=== PATIENT | male | born 1990 | race Caucasian/White ===

== ENCOUNTER 2019-10-16 19:07 | Emergency (ER) | payer SELFPAY ==
[2019-10-16 19:12] VITALS: BP 116/74; PULSE 113; RESP 16; TEMP 37.7; O2SAT 97; BMI 22.8
--- NOTE | 2019-10-16 19:20 | ED_ITS ---
Entered by Erin Meredith, acting as scribe for Scot Banks DO HPI - Fever General: Chief Complaint: Fever Stated Complaint: fever Time Seen by Provider: 10/16/19 19:19 History of Present Illness: HPI Narrative: 29yo male presents with fever. He states symptoms started 3 days ago and have been constant. Patient believes he has the flu. He is unable to eat and has muscle aches. Associated symptoms: Deny abdominal pain, back/flank pain, chills, chest pain, confusion, diarrhea, dysuria, extremity pain, headache(s), nasal congestion, nausea or vomiting Review of Systems Const: Reports: fever; Denies: chills Eyes: Denies: change in vision or blurry vision ENMT: Denies: nasal congestion Card: Denies: chest pain Resp: Denies: shortness of breath, productive cough or non-productive cough GI: Denies: abdominal pain, nausea, vomiting or diarrhea : Denies: flank pain or painful urination Musc: Denies: neck pain, back pain, extremity pain, extremity swelling, joint pain or joint swelling Skin/Breast: Denies: rash or itching Neuro: Denies: headache, numbness in extremities, weakness in extremities, changes in sensation, lack of coordination, difficulty walking, frequent falls, dizziness, vertigo or confusion Psych: Denies: anxiety, depression, loss of interest, visual hallucinations, auditory hallucinations, suicidal ideation or homicidal ideation Endo: Denies: excessive urination, excessive thirst, tired all the time or cold intolerance Ramón/Lymph: Denies: easy bruising, easy bleeding, petechiae, enlarged lymph nodes or tender lymph nodes PFSH ED PFSH: Medical History (Updated 10/16/19 @ 20:17 by Scot Banks DO) Attention-deficit hyperactivity disorder, combined type Bipolar disorder, current episode hypomanic Cannabis dependence, uncomplicated Generalized anxiety disorder Nicotine dependence, cigarettes, uncomplicated Social History (Updated 09/15/19 @ 14:26 by Bhumika Carbajal LPN) Smoking and tobacco status: current every day smoker cigarettes Smoking risk assessment/counseling performed?: Yes Tobacco counseling given: counseling >3 minutes Physical Exam 2 Const: COMMON NORMALS: no apparent distress GENERAL APPEARANCE: cooperative and comfortable ORIENTATION/CONSCIOUSNESS: Yes awake, Yes oriented to person, Yes oriented to place and Yes oriented to time HENMT: COMMON NORMALS: normocephalic, head/scalp atraumatic, hearing grossly normal bilaterally, external ears normal, EAC's normal, TM's normal bilaterally, nasal mucous membranes and turbinates normal, moist oral mucous membranes and oropharynx normal HEAD & SCALP: normocephalic and atraumatic NOSE: nasal mucous membranes and turbinates normal EXTERNAL EAR: Yes external ears normal EXTERNAL AUDITORY CANAL: EAC's normal TYMPANIC MEMBRANE: TM's normal bilaterally Eye: COMMON NORMALS: PERRL, EOMs intact bilaterally, conjunctivae normal and no scleral icterus CONJUNCTIVA: Yes conjunctivae normal PUPIL: Yes PERRL Neck/C-Spine: COMMON NORMALS: full ROM, no lymphadenopathy, supple and no JVD Lymph: LYMPHATIC: no lymphadenopathy noted and no lymphedema noted Resp: COMMON NORMALS: normal respiratory effort, no retractions, no use of accessory muscles and clear to auscultation bilaterally AUSCULTATION: clear to auscultation bilaterally Cardio: COMMON NORMALS: no JVD, regular rate, regular rhythm and no murmurs RATE: regular rate RHYTHM: regular rhythm GI: COMMON NORMALS: soft to palpation and no hepatosplenomegaly AUSCULTATION: Yes normoactive bowel sounds PALPATION: Yes soft, No tender, No guarding and Yes no hepatosplenomegaly Extremity: COMMON NORMALS: normal to inspection, normal capillary refill, no clubbing, cyanosis or edema, no calf tenderness and no pedal edema Neuro: SENSORIUM/ORIENTATION: Yes oriented to person, Yes oriented to place and Yes oriented to time Skin: COMMON NORMALS: no rashes or lesions noted GENERAL SKIN EXAM: no rashes or lesions noted Course ED course: Supportive cares Vital Signs: Vital signs: Vital Signs Temperature 100 F H 10/16/19 19:12 Pulse Rate 100 10/16/19 20:16 Respiratory Rate 18 10/16/19 20:16 Blood Pressure 116/74 10/16/19 20:16 Pulse Oximetry 95 10/16/19 20:16 Discharge Plan Discharge Patient Disposition: Home, Self-Care Clinical Impression: Influenza Condition: Stable Prescriptions: No Action quetiapine [Seroquel] 100 mg tablet 100 mg PO QDAY Qty: 30 RF: 2 fluoxetine [Prozac] 20 mg capsule 20 mg PO QDAY Qty: 30 RF: 2 Referrals: Martínez Coelho MD [Primary Care Provider] - Activity Restrictions/Additional Instructions: Abortive cares. Push fluids Tylenol ibuprofen as needed return if further problems. Discharge Date/Time: 10/16/19 20:25 Coding Level of Care Code ED Digital Imager for Chg Fwd Exam Comprehensive The documentation recorded by the Viri dominguez Bailey Leadawn, accurately reflects the service I personally performed and the decisions made by , Antonette waller,Scot Yoder, Oct 16, 2019 19:07
[2019-10-16 20:16] VITALS: BP 116/74; PULSE 100; RESP 18; O2SAT 95
== END 2019-10-16 20:25 | disposition home or self-care (01) ==
PROVIDERS: Emergency Provider Family Medicine; PCP Family Medicine
DX: J11.1 Influenza due to unidentified influenza virus with other respiratory manifestations (principal); F17.210 Nicotine dependence, cigarettes, uncomplicated
CPT/HCPCS: 99281

== ENCOUNTER → 2020-06-01 13:26 | Outpatient (BNVA) | payer OTHER, SELFPAY | PROVIDERS: PCP Family Medicine; Visit Provider Nurse Practitioner | DX: Z79.899 Other long term (current) drug therapy (principal) | CPT/HCPCS: 80061; 83036 ==

== ENCOUNTER 2021-08-04 21:24 | Emergency (ER) | payer SELFPAY ==
[2021-08-04 21:33] VITALS: PULSE 100; RESP 20; TEMP 36.4; O2SAT 97; BMI 25.0
--- NOTE | 2021-08-04 21:46 | ED_ITS ---
HPI - Dental/Oral General: Chief complaint: Dental/Oral Stated complaint: Severe infection in back tooth Time Seen by Provider: 08/04/21 21:37 History of Present Illness: HPI Narrative: Patient is a 31-year-old male comes to the ED with dental pain. Symptoms started couple days ago. His pain is located in his back lower left molar. Denies any injury or trauma to the mouth to cause pain. He is having some swelling in the gum around tooth #17. He rates his pain currently a 10 out of 10. He is currently trying to get set up with the dentist. Associated symptoms: Denies fever(s) or odynophagia Review of Systems Const: Denies: fever(s), chills or fatigue Eyes: Denies: change in vision or eye discomfort ENMT: Reports: dental pain; Denies: throat pain, odynophagia, nasal discharge or nasal congestion Card: Denies: chest pain, palpitations, edema, swelling of feet/ankles, dyspnea on exertion or orthopnea Resp: Denies: dyspnea, productive cough or non-productive cough GI: Denies: abdominal pain, nausea, vomiting, diarrhea, constipation or hematochezia : Denies: flank pain, difficulty urinating, dysuria or hematuria Musc: Denies: neck pain, back pain or extremity swelling Skin/Breast: Denies: rash or new lesions Neuro: Denies: headache(s), numbness in extremities or weakness in extremities [facility] ED PFSH: Medical History Attention-deficit hyperactivity disorder, combined type Bipolar disorder, current episode hypomanic Cannabis dependence, uncomplicated Generalized anxiety disorder Nicotine dependence, cigarettes, uncomplicated On high dose antipsychotic drug therapy Social History Smoking and tobacco status: current every day smoker cigarettes Smoking risk assessment/counseling performed?: Yes Tobacco counseling given: counseling >3 minutes Physical Exam Const: COMMON NORMALS: no acute distress, patient oriented x3, healthy appearing and alert GENERAL APPEARANCE: cooperative and comfortable HENMT: COMMON NORMALS: normocephalic HEAD & SCALP: normocephalic MOUTH: Normal oral and palatal mucosa present TEETH & GINGIVA: Yes abnormal tooth and associated gingiva lower left third molar tender, with associated gingival edema and other (dental caries) and Yes caries THROAT: posterior oropharynx normal and uvula midline Eye: COMMON NORMALS: Equal, round and reactive pupils present PUPIL: Yes Equal, round and reactive pupils present Neck/C-Spine: COMMON NORMALS: supple GENERAL: Yes normal visual inspection Resp: COMMON NORMALS: normal respiratory effort, No retractions, No use of accessory muscles and clear to auscultation bilaterally AUSCULTATION: clear to auscultation bilaterally Cardio: COMMON NORMALS: regular rate, regular rhythm, S1 normal heart sound present, S2 normal heart sound present, No gallops present (Cardio), No clicks present (Cardio), No murmurs present (Cardio) and Peripheral pulses 2+ throughout RATE: regular rate RHYTHM: regular rhythm HEART SOUNDS: S1 normal heart sound present and S2 normal heart sound present PERIPHERAL PULSES: Peripheral pulses 2+ throughout GI: COMMON NORMALS: Normal to inspection, nondistended, normoactive bowel sounds present, Soft to palpation, non-tender and no masses PALPATION: Yes Soft to palpation : COMMON NORMALS: Yes no CVA tenderness BLADDER/KIDNEY EXAM: Yes no CVA tenderness Back/Pelvis: COMMON NORMALS: no CVA tenderness Extremity: COMMON NORMALS: normal to inspection Neuro: COMMON NORMALS: patient oriented x3 SENSORIUM/ORIENTATION: Yes alert Skin: GENERAL SKIN EXAM: dry skin Course Vital Signs: Vital signs: Vital Signs Temperature 97.5 F L 08/04/21 21:33 Pulse Rate 100 08/04/21 21:33 Respiratory Rate 16 08/04/21 21:59 Pulse Oximetry 97 08/04/21 21:33 MDM - Dental/Oral MDM Narrative: Medical decision making narrative: Patient is a 31-year-old male comes to the ED with dental pain. He was discharged home with a prescription for clindamycin and Celebrex for pain. He was told to contact [facility] and get appointment set up with them for further evaluation. Return to ED precautions given. Patient understood agree with plan. Discharge Plan Discharge Patient Disposition: Home Clinical Impression: Pain due to dental caries Condition: Stable Prescriptions: New clindamycin HCl 150 mg capsule 300 mg PO QID 7 Days Qty: 56 RF: 0 Celebrex 100 mg capsule 100 mg PO BID PRN (Reason: pain) Qty: 20 RF: 0 No Action quetiapine [Seroquel] 100 mg tablet 100 mg PO .HS Qty: 30 RF: 1 venlafaxine 75 mg capsule,extended release 24hr 75 mg PO DAILY Qty: 30 RF: 1 Discharge Orders: Discharge ED (Routine); Ordered 08/04/21 Ordered By: Deon Echevarria Discharge Diet: Regular Discharge Activity: Resume usual activity Patient Instructions: Dental Caries (Cavities) Activity Restrictions/Additional Instructions: Follow-up with dentist as soon as possible to get your dental issue evaluated. Take medications as prescribed. Return to the ER or your medical provider if condition worsens. Please read and understand discharge instructions. Thank you for choosing [facility] for your healthcare needs today. Please realize this is an emergency room and that we are providing you with a medical screening exam and this may not be complete and all inclusive of all the testing and or work up that you may need to determine your ailment or severity of your illness. It is very important that you follow up as instructed or that you return to the Emergency Department should you have concerns or if your condition changes or worsens in any way. Coding Level of Care Code ED Chemical Operations Specialist for Lg Teague Exam Comprehensive
[2021-08-04] MEDS: clindamycin 150 mg Capsule 300 MG PO (21:54)
[2021-08-04] MEDS: HYDROcodone-acetaminophen 7.5-325 mg Tablet 1 TAB PO (21:54)
[2021-08-04 21:59] VITALS: RESP 16
== END 2021-08-04 22:00 | disposition home or self-care (01) ==
PROVIDERS: Emergency Provider Physician Assistant
DX: K02.9 Dental caries, unspecified (principal); F17.210 Nicotine dependence, cigarettes, uncomplicated
CPT/HCPCS: 99283

== ENCOUNTER 2023-04-11 00:36 | Emergency (ER) | payer SELFPAY ==
[2023-04-11 00:55] VITALS: BP 135/75; PULSE 120; RESP 18; TEMP 37.3; O2SAT 95; BMI 22.0
--- NOTE | 2023-04-11 00:57 | W.ED.URI ---
HPI - URI/Sore Throat General: Chief Complaint: Upper Respiratory Infection Stated Complaint: Sore Throat Time Seen by Provider: 04/11/23 00:41 History of Present Illness: 33-year-old male patient comes in today with complaints of sore throat. Patient reports noticing exudate to his tonsils 2 to 3 days ago. Patient reports that he was trying to get the white stuff off his tonsils when he started some bleeding. Patient has no bleeding at this time. Patient appears nontoxic. Associated symptoms: Reports chills Review of Systems General: Reports: 10 or more systems reviewed and unremarkable except in HPI and below Const: Reports: chills ENMT: Reports: enlarged tonsils PFSH ED PFSH: Medical History Attention-deficit hyperactivity disorder, combined type Bipolar disorder, current episode hypomanic Cannabis dependence, uncomplicated Generalized anxiety disorder Nicotine dependence, cigarettes, uncomplicated On high dose antipsychotic drug therapy Social History Smoking and tobacco status: current every day smoker cigarettes Smoking risk assessment/counseling performed?: Yes Tobacco counseling given: counseling >3 minutes Physical Exam Const: COMMON NORMALS: alert HENMT: COMMON NORMALS: normocephalic HEAD & SCALP: normocephalic THROAT: abnormal tonsil right erythema, exudates and hypertrophy and left erythema Neck/C-Spine: COMMON NORMALS: full ROM Resp: COMMON NORMALS: normal respiratory effort Cardio: COMMON NORMALS: regular rhythm RHYTHM: regular rhythm GI: COMMON NORMALS: non-tender Back/Pelvis: COMMON NORMALS: thoracic and lumbar spine normal to inspection Extremity: COMMON NORMALS: full ROM Neuro: SENSORIUM/ORIENTATION: Yes alert Skin: COMMON NORMALS: turgor normal GENERAL SKIN EXAM: turgor normal Course Vital Signs: Vital signs: Vital Signs Temperature 99.1 F 04/11/23 00:55 Pulse Rate 120 H 04/11/23 00:55 Respiratory Rate 18 04/11/23 00:55 Blood Pressure 135/75 04/11/23 00:55 Pulse Oximetry 95 04/11/23 00:55 Oxygen Delivery Me thod Room Air 04/11/23 00:55 MDM - URI/Sore Throat Medical Decision Making 33-year-old male patient comes in today with complaints of sore throat. On exam patient has a enlarged right tonsil with exudate. Patient's left tonsil is irregular and erythematous. Patient manages secretions well. Posterior pharynx is erythematous. Respirations are even lungs are clear to auscultation. Vital signs note some mild tachycardia and a temperature of 99.1. Differential diagnosis includes exudative tonsillitis, tonsillar abscess, retropharyngeal abscess, upper respiratory infection. No signs of severe illness is noted at this time. Patient does appear to have exudative tonsillitis. We will go ahead and treat with Augmentin and 1 dose of dexamethasone 10 mg. Patient reported understanding of care plan and need for follow-up or return to the ER. Discharge Plan Discharge Patient Disposition: Home Clinical Impression: Tonsillitis with exudate Condition: Stable Prescriptions: New amoxicillin-pot clavulanate 875-125 mg tablet 1 tab PO BID Qty: 20 0RF No Action quetiapine [Seroquel] 100 mg tablet 100 mg PO .HS Qty: 30 1RF venlafaxine 75 mg capsule,extended release 24hr 75 mg PO DAILY Qty: 30 1RF Celebrex 100 mg capsule 100 mg PO BID PRN (Reason: pain) Qty: 20 0RF Discharge Orders: Discharge ED (Routine); Ordered 04/11/23 Ordered By: Dax Tatum Discharge Diet: Usual diet Discharge Activity: Increase activity as tolerated Patient Instructions: Tonsillitis (ED) Activity Restrictions/Additional Instructions: Drink plenty of water with antibiotics. Use warm salt water gargles to help with exudate to the tonsils. Do not swallow the salt water just spit it out after gargling. Take oral antibiotics for the total of 10 days. You were given a dose of dexamethasone 10 mg in the emergency room to help with the tonsil swelling and soreness. Follow-up with primary care for further instructions. Return to ED for new concerns or worsening symptoms such as severe shortness of breath, or inability to swallow. Coding Level of Care Code ED Small Arms Artillery Repairer for Lg Teague
[2023-04-11] MEDS: dexamethasone 4 mg Tablet 10 MG PO (01:13)
[2023-04-11] MEDS: amoxicillin-clav 875-125 mg Tablet 1 TAB PO (01:13)
== END 2023-04-11 01:18 | disposition home or self-care (01) ==
PROVIDERS: Emergency Provider Nurse Practitioner Family
DX: J03.90 Acute tonsillitis, unspecified (principal); F17.210 Nicotine dependence, cigarettes, uncomplicated
CPT/HCPCS: 99283; J8540

== ENCOUNTER 2024-04-04 09:55 | Emergency (ER) | payer SELFPAY ==
[2024-04-04 10:09] VITALS: BP 136/79; PULSE 91; RESP 17; TEMP 36.7; O2SAT 98; BMI 24.3
--- NOTE | 2024-04-04 10:51 | CTR_ITS ---
PROCEDURE INFORMATION: Exam: CT Abdomen And Pelvis With Contrast Exam date and time: 04/04/2024 12:12 PM Age: 34 years old Clinical indication: Other: Rectal bleeding; Additional info: Abd pain, rectal bleeding TECHNIQUE: Imaging protocol: Computed tomography of the abdomen and pelvis with contrast. Radiation optimization: All CT scans at this facility use at least one of these dose optimization techniques: automated exposure control; mA and/or kV adjustment per patient size (includes targeted exams where dose is matched to clinical indication); or iterative reconstruction. Contrast material: OMNI 350; Contrast volume: 100 ml; Contrast route: INTRAVENOUS (IV); COMPARISON: No relevant prior studies available. RADIATION DOSE METRICS: Total DLP (mGy-cm): 481.92 FINDINGS: Diaphragm: Small hiatal hernia. Liver: Normal. No mass. Gallbladder and biliary ducts: Normal. No calcified stones. No ductal dilation. Pancreas: Normal. No ductal dilation. Spleen: Normal. No splenomegaly. Adrenal glands: Normal. No mass. Kidneys and ureters: Normal. No hydronephrosis. Stomach and bowel: Unremarkable. No obstruction. No mucosal thickening. Appendix: No evidence of appendicitis. Intraperitoneal space: Unremarkable. No free air. No significant fluid collection. Vasculature: Unremarkable. No abdominal aortic aneurysm. Lymph nodes: Unremarkable. No enlarged lymph nodes. Urinary bladder: Unremarkable as visualized. Reproductive: Unremarkable as visualized. Bones/joints: Physiologic anterior loss of height of the T12 vertebral body. Soft tissues: Small fat containing umbilical hernia. CT/CT abdomen pelvis w con* [id number] IMPRESSION: No acute intra-abdominal process.
--- NOTE | 2024-04-04 11:07 | ED_ITS ---
HPI - Abdominal Pain 2 General: Chief Complaint: Abdominal Pain Stated Complaint: ABD Pain and blood in stool Time Seen by Provider: 04/04/24 10:50 History of Present Illness: 34-year-old male presents to the emergen cy room complaining of intermittent abdominal pain. Patient had an episode of bright red blood in the stool at around 9:00. No fever sweats or chills. No previous rectal bleeding no history of any inflammatory bowel disease such as Crohn's or ulcerative colitis. Associated Symptoms: Denies chills, dysuria and fever(s) Related Data Previous Rx's Medication Instructions Recorded amoxicillin 875 mg-potassium 1 tab PO BID 10 days #20 tabs 10/26/23 clavulanate 125 mg tablet Allergies Allergy/AdvReac Type Severity Reaction Status Date / Time cefaclor [From [facility]] Allergy Unknown Verified 10/26/23 11:40 Review of Systems 2 Const: Denies: fever(s) or chills Card: Denies: chest pain Resp: Denies: dyspnea GI: Denies: abdominal pain : Denies: dysuria, urinary frequency or urinary urgency Musc: Denies: neck pain or back pain Skin/Breast: Denies: rash PFSH ED 2 PFSH: Medical History On high dose antipsychotic drug therapy Nicotine dependence, cigarettes, uncomplicated Cannabis dependence, uncomplicated Attention-deficit hyperactivity disorder, combined type Generalized anxiety disorder Bipolar disorder, current episode hypomanic Social History Smoking and tobacco/nicotine status: current every day tobacco/nicotine user cigarettes Physical Exam 2 Const: COMMON NORMALS: no acute distress GENERAL APPEARANCE: cooperative and comfortable ORIENTATION/CONSCIOUSNESS: Yes awake, Yes oriented to person, Yes oriented to place and Yes oriented to time HENMT: COMMON NORMALS: normocephalic, atraumatic and hearing grossly normal bilaterally HEAD & SCALP: normocephalic and atraumatic Resp: COMMON NORMALS: normal respiratory effort, No retractions, No use of accessory muscles and clear to auscultation bilaterally AUSCULTATION: clear to auscultation bilaterally Cardio: COMMON NORMALS: regular rate, regular rhythm and No murmurs present (Cardio) RATE: regular rate RHYTHM: regular rhythm GI: COMMON NORMALS: Soft to palpation and No hepatosplenomegaly present I NSPECTION: Yes Laceration(s) present (GI) (Superficial abrasion of the 12 o'clock position not full-thickness no ac) AUSCULTATION: Yes normoactive bowel sounds PALPATION: Yes Soft to palpation, No Tenderness to palpation present (GI), No Guarding due to palpation present (GI) and Yes No hepatosplenomegaly present RECTAL EXAM: Yes normal sphincter tone, Yes heme positive stool, No Lesions present (GI), Yes Laceration(s) present (GI) (Superficial abrasion of the 12 o'clock position not full-thickness no ac) and No mass Extremity: COMMON NORMALS: normal to inspection, capillary refill normal, no clubbing, cyanosis or edema, no calf tenderness and no pedal edema Neuro: SENSORIUM/ORIENTATION: Yes oriented to person, Yes oriented to place and Yes oriented to time Skin: COMMON NORMALS: no rashes or lesions noted GENERAL SKIN EXAM: no rashes or lesions noted Course 2 Vital Signs: Vital signs: Vital Signs Temperature 98.0 F 04/04/24 10:09 Pulse Rate 92 04/04/24 13:45 Respiratory Rate 17 04/04/24 10:09 Blood Pressure 147/82 04/04/24 13:45 Pulse Oximetry 97 04/04/24 13:45 Oxygen Delivery Me thod Room Air 04/04/24 13:40 MDM - Abdominal Pain Medical Decision Making Small abrasion to 12 o'clock position of the rectum but no active bleeding on rectal exam no masses or significant hemorrhoids noted. CT was negative. No leukocytosis. Will discharge patient home have him follow-up with his primary care doctor within the next week to reevaluate if has further symptoms may need to be evaluated further with colonoscopy. Return if has increased rectal bleeding Medical Records I reviewed the patient's medical records. Lab Data I reviewed the patient's lab results. 04/04/24 12:00 04/04/24 12:00 Labs/Radiology: Radiology Impressions Abdomen/Pelvis CT 04/04/24 10:51 IMPRESSION: No acute intra-abdominal process. Laboratory Results WBC 6.86 10^3/uL (3.29-11.43) 04/04/24 12:00 RBC 4.98 10^6/uL (3.85-5.65) 04/04/24 12:00 Hgb 15.80 g/dL (11.27-16.99) 04/04/24 12:00 Hct 45.8 % (37-53) 04/04/24 12:00 MCV 92.0 fl (82-101) 04/04/24 12:00 MCH 31.7 pg (27-33) 04/04/24 12:00 MCHC 34.5 g/dL (30-55) 04/04/24 12:00 RDW 12.2 % (12.1-15.1) 04/04/24 12:00 Plt Count 258 10^3/cmm (157-399) 04/04/24 12:00 MPV 9.5 fL (7.4-10.4) 04/04/24 12:00 Neut % (Auto) 60.1 % 04/04/24 12:00 Lymph % (Auto) 28.3 % 04/04/24 12:00 Turner % (Auto) 8.6 % 04/04/24 12:00 Eos % (Auto) 1.7 % 04/04/24 12:00 Baso % (Auto) 0.6 % 04/04/24 12:00 Neut # (Auto) 4.12 10^3/uL (1.8-7.7) 04/04/24 12:00 Lymph # (Auto) 1.9 10^3/uL (0.8-4.8) 04/04/24 12:00 Turner # (Auto) 0.6 10^3/uL (0.2-0.9) 04/04/24 12:00 Eos # (Auto) 0.1 10^3/uL (0.0-0.8) 04/04/24 12:00 Baso # (Auto) 0.0 10^3/uL (0.0-0.1) 04/04/24 12:00 Nucleated RBC % (auto) 0 % 04/04/24 12:00 Nucleated RBCs # 0.0 /100WBC 04/04/24 12:00 Sodium 140 mmol/L (136-145) 04/04/24 12:00 Potassium 4.7 mmol/L (3.5-5.1) 04/04/24 12:00 Chloride 105 mmol/L (98-107) 04/04/24 12:00 Carbon Dioxide 23 mmol/L (22-29) 04/04/24 12:00 Anion Gap 16.7 (5-19) 04/04/24 12:00 BUN 13 mg/dL (6-20) 04/04/24 12:00 Creatinine 0.8 mg/dL (0.7-1.2) 04/04/24 12:00 GFR Calculation 110.7 mL/min (90-130) 04/04/24 12:00 Glucose 122 mg/dL (65-115) H 04/04/24 12:00 Calculated Osmolality 291 mOsm/kg (285-295) 04/04/24 12:00 Calcium 8.9 mg/dL (8.5-10.5) 04/04/24 12:00 Total Bilirubin 0.5 mg/dL (0.15-1.2) 04/04/24 12:00 AST 13 U/L (0-40) 04/04/24 12:00 ALT 18 U/L (0-41) 04/04/24 12:00 Alkaline Phosphatase 87 U/L (40-130) 04/04/24 12:00 C-Reactive Protein 3.0 mg/L (0.0-4.9) 04/04/24 12:00 Total Protein 7.4 g/dL (6.6-8.7) 04/04/24 12:00 Albumin 4.4 g/dL (3.5-5.2) 04/04/24 12:00 Globulin 3.0 g/dL (1.3-4.6) 04/04/24 12:00 Urine Color Yellow (Yellow) 04/04/24 12:26 Urine Appearance Clear (CLEAR) 04/04/24 12:26 Urine pH 6.5 (5-7) 04/04/24 12:26 Ur Specific [place] 1.042 (1.005-1.030) H 04/04/24 12:26 Urine Protein Negative (Negative) 04/04/24 12: Urine Glucose (UA) Negative (Normal) 04/04/24 12: Urine Ketones Negative (Negative) 04/04/24 12: Urine Blood Negative (Negative) 04/04/24 12: Urine Nitrate Negative (Negative) 04/04/24 12: Urine Bilirubin Negative (Negative) 04/04/24 12:26 Urine Urobilinogen 1.0 mg/dL (Negative) 04/04/24 12:26 Ur Leukocyte Esterase Negative (Negative) 04/04/24 12:26 Urine RBC 0-2 /hpf (0-2) 04/04/24 12:26 Urine WBC 0-5 /hpf (0-5) 04/04/24 12:26 Ur Squamous Epith Cells 0-5 /hpf (0-5) 04/04/24 12:26 Amorphous Sediment Not Reportable 04/04/24 12:26 Urine Bacteria None seen /hpf (NONE) 04/04/24 12:26 Hyaline Casts 0.40 /lpf 04/04/24 12:26 All radiology interpretation(s) finalized by discharge Discharge Plan Discharge Patient Disposition: Home Clinical Impression: Bright red rectal bleeding Condition: Stable Prescriptions: No Action amoxicillin-pot clavulanate 875-125 mg tablet 1 tab PO BID 10 Days Qty: 20 0RF Discharge Orders: Discharge ED (Routine); Ordered 04/04/24 Ordered By: Scot Banks Discharge Diet: Full LIquid Discharge Activity: Resume usual activity Patient Instructions: Opioid Safety, Pain Management Activity Restrictions/Additional Instructions: Thank you for choosing [facility] for your healthcare needs today. It is very important that you follow up as instructed or that you return to the Emergency Department should you have concerns or if your condition changes or worsens in any way. You were seen today with complaint of bleeding from the rectum. There was a small abrasion near the rectum on exam otherwise a rectal exam was normal did best test positive for blood. CT was normal and your hemoglobin and hematocrit (blood counts) were normal. Recommend a liquid diet. And follow-up with your primary care doctor within the next few days. Return if you have further problems. 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
[2024-04-04 11:59] VITALS: BP 132/69; PULSE 78; O2SAT 96
[2024-04-04 12:00] VITALS: BP 129/84; PULSE 75; O2SAT 95
[2024-04-04] MEDS: iohexol 350 mg/mL 500 mL Btl (per mL) IV (12:16)
[2024-04-04 12:24] LABS: Basophils % 0.6 %; Eosinophils # 0.1 10^3/uL (0.0-0.8); Eosinophils % 1.7 %; Hematocrit 45.8 % (37-53); Lymphocytes # 1.9 10^3/uL (0.8-4.8); Lymphocytes % 28.3 %; Mean Corpuscular HGB Conc 34.5 g/dL (30-55); Mean Corpuscular Hemoglobin 31.7 pg (27-33); Mean Platelet Volume 9.5 fL (7.4-10.4); Monocytes # 0.6 10^3/uL (0.2-0.9); Monocytes % 8.6 %; Neutrophils # 4.12 10^3/uL (1.8-7.7); Neutrophils % 60.1 %; Nucleated Red Blood Cells % 0 %; Platelet Count 258 10^3/cmm (157-399); Red Blood Count 4.98 10^6/uL (3.85-5.65); Red Cell Distribution Width 12.2 % (12.1-15.1); White Blood Count 6.86 10^3/uL (3.29-11.43)
[2024-04-04 12:30] VITALS: BP 134/94; PULSE 84; O2SAT 97
[2024-04-04 12:37] LABS: Alanine Aminotransferase 18 U/L (0-41); Albumin Level 4.4 g/dL (3.5-5.2); Alkaline Phosphatase 87 U/L (40-130); Anion Gap 16.7 (5-19); Aspartate Amino Transferase 13 U/L (0-40); Blood Urea Nitrogen 13 mg/dL (6-20); Calcium 8.9 mg/dL (8.5-10.5); Carbon Dioxide 23 mmol/L (22-29); Chloride 105 mmol/L (98-107); Creatinine Clr Calc Pharmacy 128.9483; Glomerular Filtration Rate 110.7 mL/min (90-130); Glucose 122 mg/dL (65-115); Osmolality Calculated 291 mOsm/kg (285-295); Potassium 4.7 mmol/L (3.5-5.1); Sodium 140 mmol/L (136-145); Total Bilirubin 0.5 mg/dL (0.15-1.2); Total Protein 7.4 g/dL (6.6-8.7)
[2024-04-04 13:15] LABS: Bilirubin Urine Negative (Negative); Blood Urine Negative (Negative); Glucose Urine UA Negative (Normal); Ketones Urine Negative (Negative); Leukocyte Esterase Urine Negative (Negative); Nitrate Urine Negative (Negative); Protein Urine Negative (Negative); Urine Appearance Clear (CLEAR); Urine Color Yellow (Yellow); pH Urine 6.5 (5-7)
[2024-04-04 13:20] LABS: Bacteria Urine None Seen /hpf; RBC Urine 0-2 /hpf (0-2); Squamous Epithelial Cell Urine 0-5 /hpf (0-5); WBC Urine 0-5 /hpf (0-5)
[2024-04-04 13:31] LABS: Specific Gravity, Urine 1.042 (1.005-1.030)
[2024-04-04 13:40] VITALS: BP 142/82; PULSE 82; O2SAT 95
[2024-04-04 13:45] VITALS: BP 147/82; PULSE 92; O2SAT 97
== END 2024-04-04 13:45 | disposition home or self-care (01) ==
PROVIDERS: Emergency Medicine; Emergency Provider Family Medicine
DX: K62.5 Hemorrhage of anus and rectum (principal); F17.210 Nicotine dependence, cigarettes, uncomplicated
CPT/HCPCS: 74177; 80053; 81001; 85025; 86140; 99285; Q9967

== ENCOUNTER 2024-09-30 11:41 | Emergency (ER) | payer SELFPAY ==
[2024-09-30 12:06] VITALS: BP 109/72; PULSE 90; TEMP 36.8; O2SAT 98
[2024-09-30 13:11] LABS: Covid PCR NEGATIVE (Negative); Influenza A POSITIVE (Negative); Influenza B NEGATIVE (Negative); Respiratory Syncytial Virus Ce NEGATIVE (Negative)
--- NOTE | 2024-09-30 13:35 | W.ED.URI ---
HPI - URI/Sore Throat General: Chief Complaint: Upper Respiratory Infection Stated Complaint: dizzy,fever,v Time Seen by Provider: 09/30/24 13:29 Source: patient Mode of arrival: ambulatory Limitations: no limitations History of Present Illness: Patient is a 34-year-old male who presents to ED today and along with another individual who he resides with both of which have flu like symptoms including fevers, chills, body aches, congestion, cough. Symptoms have been present over the past 3 days or so. MD elicited complaint: fever, cough, sore throat, rhinorrhea and nasal congestion Onset (ago): day(s) Consistency: constant Severity: moderate Description of mucous: clear Able to tolerate fluids by mouth: Yes Exacerbating factors: nothing Relieving factors: other (OTC antipyretics) Context: sick contacts (roommate) Associated symptoms: Reports chills, fever(s), headache(s) and nasal congestion; Deny chest pain, diarrhea, ear or mastoid pain or vomiting Treatments prior to arrival: none Related Data Previous Rx's ?Medication ?Instructions ?Recorded amoxicillin 875 mg-potassium 1 tab PO BID 10 days #20 tabs 10/26/23 clavulanate 125 mg tablet Allergies Allergy/AdvReac Type Severity Reaction Status Date / Time cefaclor (From [facility]) Allergy Unknown Verified 09/30/24 12:11 Review of Systems Const: Reports: fever(s), chills, body aches and fatigue Eyes: Denies: change in vision, blurry vision or photophobia ENMT: Reports: throat pain, odynophagia, nasal discharge and nasal congestion; Denies: ear or mastoid pain Card: Denies: chest pain, palpitations, syncope or pre-syncope Resp: Reports: non-productive cough and chest congestion GI: Denies: vomiting or diarrhea : Denies: flank pain or dysuria Musc: Denies: neck pain, back pain, extremity pain, extremity swelling, joint swelling or joint redness Skin/Breast: Denies: rash Neuro: Reports: headache(s); Denies: numbness in extremities, weakness in extremities or sensory changes PFSH ED PFSH: Medical History On high dose antipsychotic drug therapy Nicotine dependence, cigarettes, uncomplicated Cannabis dependence, uncomplicated Attention-deficit hyperactivity disorder, combined type Generalized anxiety disorder Bipolar disorder, current episode hypomanic Social History Smoking and tobacco/nicotine status: current every day tobacco/nicotine user cigarettes Physical Exam Const: COMMON NORMALS: no acute distress, average body habitus, no limitations, healthy appearing, alert and well nourished GENERAL APPEARANCE: cooperative HENMT: COMMON NORMALS: Normal external nose present FACE & SINUS: normal facial exam NOSE: Normal external nose present THROAT: posterior oropharynx normal Eye: GENERAL EYE: appearance normal, both eyes and all related structures Neck/C-Spine: COMMON NORMALS: no lymphadenopathy Resp: COMMON NORMALS: normal respiratory effort and clear to auscultation bilaterally AUSCULTATION: clear to auscultation bilaterally Cardio: COMMON NORMALS: regular rate and regular rhythm RATE: regular rate RHYTHM: regular rhythm Neuro: SENSORIUM/ORIENTATION: Yes alert Course Vital Signs: Vital signs: Vital Signs Temperature 98.2 F 09/30/24 12:06 Pulse Rate 90 09/30/24 12:06 Blood Pressure 109/72 09/30/24 12:06 Pulse Oximetry 98 09/30/24 12:06 Oxygen Delivery Me thod Room Air 09/30/24 12:06 MDM - URI/Sore Throat Medical Decision Making Patient here for flu like symptoms. He is positive for influenza A. He is outside the window for Tamiflu. Conservative therapies discussed. Differential Diagnosis Likely upper respiratory infection, viral infection and influenza Medical Records I reviewed the patient's medical records. Lab Data I reviewed the patient's lab results. Laboratory Results Coronavirus (PCR) Negative (Negative) 09/30/24 12:12 Influenza A (PCR) Positive (Negative) 09/30/24 12:12 Influenza Type B (PCR) Negative (Negative) 09/30/24 12:12 RSV (PCR) Negative (Negative) 09/30/24 12:12 No radiology studies performed this visit Discharge Plan Discharge Patient Disposition: Home Clinical Impression: Influenza A Condition: Stable Prescriptions: No Action amoxicillin-pot clavulanate 875-125 mg tablet 1 tab PO BID 10 Days Qty: 20 0RF Discharge Orders: Discharge ED (Routine); Ordered 09/30/24 Ordered By: Teagan Cloud Patient Instructions: Influenza (DC) Stand Alone Forms: Work/School Release Print Language: Nauruan 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
[2024-09-30 14:03] VITALS: BP 128/79; PULSE 86; O2SAT 96
== END 2024-09-30 13:55 | disposition home or self-care (01) ==
PROVIDERS: Emergency Medicine; Emergency Provider Physician Assistant
DX: J10.1 Influenza due to other identified influenza virus with other respiratory manifestations (principal); Z11.52 Encounter for screening for COVID-19; F17.210 Nicotine dependence, cigarettes, uncomplicated
CPT/HCPCS: 87637; 99283